=== PATIENT | male | born 1960 | race Caucasian/White ===

== ENCOUNTER 2016-05-08 06:06 | Day surgery (SDC) | payer OTHER ==
[~2016-05-08] VITALS: Ht 162.6 cm; Wt 58.9 kg
[2016-05-08 07:04] VITALS: Ht 162.6 cm; Wt 58.9 kg
[2016-05-08 08:01] VITALS: BP 138/92; PULSE 67; RESP 18
[2016-05-08] MEDS ORDERED: FENTAnyl 50 MCG/ML VIAL ONE (08:40)
[2016-05-08] MEDS ORDERED: MIDAZOLAM 1 MG/ML 2 ML INJ ONE ×2 (08:40)
[2016-05-08 09:07] VITALS: BP 121/77; PULSE 61; RESP 18
--- NOTE | 2016-05-08 19:57 | GILP ---
DATE OF PROCEDURE: NAME OF PROCEDURE: Colonoscopy. SURGEON: Ines Contreras MD PREOPERATIVE DIAGNOSIS: Screening colonoscopy. POSTOPERATIVE DIAGNOSES: 1. Colonoscopy all the way to the cecum. 2. Internal hemorrhoids. 3. No colon neoplasm was identified. INDICATION FOR THE PROCEDURE: Mr. Rae Maradiaga is a 56-year-old male patient who was scheduled fo r screening colonoscopy. The procedure and possible complications were well explained to the patient. The patient understood and consented to the procedure. DESCRIPTION OF PROCEDURE: Under the influence of fentanyl and Versed, the colonoscope was carefully introduced in the rectum. Under direct vision, it was advanced all the way to the cecum. FINDINGS: The patient had internal hemorrhoids. No colon neoplasm was identified. He tolerated the procedure very well and there was no complication from the procedure. At the end o f the procedure, he was awake with stable vital signs and he was discharged home to the care of his family. IMPRESSION: 1. Colonoscopy all the way to the cecum. 2. Internal hemorrhoids. 3. No colon neoplasm was identified. PLAN: Next screening colonoscopy in 10 years. Dictated By: INES NEFF/RONNIE Conf#: [id number] DID#: [id number] CC: INES CONTRERAS MD;*EndCC*
== END 2016-05-08 10:03 | disposition home or self-care (01) ==
LOC: GIL 06:06
PROVIDERS: ATTEND Internal Medicine Gastroenterology
DX: Z12.11 Encounter for screening for malignant neoplasm of colon (principal); K64.8 Other hemorrhoids
CPT/HCPCS: 45378; J2250; J3010